=== PATIENT | female | born 1990 | race Two or more races ===

== ENCOUNTER 2023-04-27 17:24 | Emergency (ER) | payer SELFPAY ==
[~2023-04-27] VITALS: Ht 180.3 cm; Wt 141.5 kg
[2023-04-27 20:09] VITALS: BP 124/83; PULSE 84; RESP 17; TEMP 97; O2SAT 98
[2023-04-27] MEDS ORDERED: ACET500T58 PO (20:33)
== END 2023-04-27 22:37 | disposition home or self-care (01) ==
LOC: ER 17:24
DX: S42.291A Other displaced fracture of upper end of right humerus, initial encounter for closed fracture (principal); W18.40XA Slipping, tripping and stumbling without falling, unspecified, initial encounter; Y93.89 Activity, other specified; Y92.89 Other specified places as the place of occurrence of the external cause; Y99.8 Other external cause status
CPT/HCPCS: 73080; 73090